=== PATIENT | female | born 1945 | race Caucasian/White ===

== ENCOUNTER 2016-12-10 07:05 | Inpatient (IN) | payer MEDICARE, BC ==
--- NOTE | 2016-12-02 16:59 | HP ---
HISTORY AND PHYSICAL: DATE OF ADMISSION/SURGERY: 12/10/16 DATE OF OFFICE VISIT: 11/29/16 SURGEON: Tracey Munoz MD * (DICTATED BY ELI CURRIE) PROCEDURE: Left total knee arthroplasty. CHIEF COMPLAINT: Left knee pain. HISTORY OF PRESENT ILLNESS: Ms. Fountain is a 71-year-old female with complaints of left knee pain secondary to advanced osteoarthritis. She has failed conservative management and has elected to proceed with a left total knee arthroplasty, which is scheduled for 12/10/16. PAST MEDICAL HISTORY: Hypertension and a thyroid goiter. PAST SURGICAL HISTORY: Hysterectomy, bilateral feet surgery, left great toe surgery, hammertoe repair of the left foot, and left knee arthroscopy. CURRENT MEDICATIONS: 1. Metoprolol. 2. Vitamin D. 3. Melatonin. 4. Estrace. 5. Cetirizine. 6. Pepcid. 7. Hair, Skin, and Nails. ALLERGIES: AMOXICILLIN and DULCOLAX. FAMILY HISTORY: Diabetes, heart disease, and colon cancer. SOCIAL HISTORY: A 71-year-old female. She lives with her . She does not smoke or use drugs. Uses occasional alcohol. REVIEW OF SYSTEMS: A complete 14-point review of systems was reviewed with the patient, was all negative or noncontributory. PHYSICAL EXAMINATION GENERAL: Well developed, well nourished, in no acute distress. VITAL SIGNS: She stands 5 feet 8 inches tall, weighs 190 pounds. Her blood pressure is 124/68, her heart rate is 60. HEENT: Normocephalic, atraumatic. NECK: Supple. No palpable lymph nodes. PULMONARY: Lungs are clear to auscultation bilaterally. CARDIO: Regular rate and rhythm. Strong S1, S2. ABDOMEN: Soft, nontender, nondistended. NEUROLOGICAL: Cranial nerves II through XII are intact. She is alert and oriented x3. MUSCULOSKELETAL: Left lower extremity, the skin is intact. She has no open wounds or abrasions. She has moderate joint effusion, tenderness over the medial and lateral joint lines. No varus or valgus instability. 5 to 125 degrees of flexion. 2+ dorsalis pedis pulses. Her lower extremity muscle group strengths are intact at 5/5. ASSESSMENT AND PLAN: Ms. Fountain is a 71-year-old female with complaints of left knee pain secondary to advanced osteoarthritis. She has failed conservative management and has elected to proceed with a left total knee arthroplasty, which is scheduled for 12/10/[address] Munoz discussed the risks and benefits of the surgery at today's visit and all of her questions were answered. Coumadin was sent to her pharmacy for postoperative DVT prophylaxis. No pain medication was sent; she has high sensitivity to pain medications, and she will follow with Dr. Munoz in 2 weeks after the surgery. Pain medication will be determined upon discharge. ELI CURREI [id number]/[facility] #: [id number] YUSRA
[~2016-12-10 07:05] MED LIST: Buffered Lidocaine 0.9% SYRIN* 5 ML/SYR SYRINGE INTRADERM ONE
[2016-12-10] MEDS ORDERED: Clindamycin 900 MG IVPREMIX(* 900 MG/50 ML SDV IV ONE (07:10)
[2016-12-10] MEDS ORDERED: Buffered Lidocaine 0.9% SYRIN* 5 ML/SYR SYRINGE ONE (07:10)
[2016-12-10] MEDS ORDERED: Midazolam* 1 MG/ML 5 ML VIAL (5 MG) ONE (08:53)
[2016-12-10] MEDS ORDERED: Bupivacaine 0.5% SDV PF* 30 ML VIAL ONE (10:01)
[2016-12-10] MEDS ORDERED: fentaNYL* 50 MCG/ML 2 ML VIAL (100 MCG VIAL) ONE ×2 (10:44→15:32)
[2016-12-10] MEDS ORDERED: Propofol* 10 MG/ML 20 ML BTL IV PUSH ONE (11:19)
[2016-12-10] MEDS ORDERED: Ondansetron INJ* 2 MG/ML VIAL IV PRN ×2 (11:51→11:52)
[2016-12-10] MEDS ORDERED: HYDROmorphone INJ* 2 MG/ML CARPUJECT SYRINGE IV PRN (11:51)
[2016-12-10] MEDS ORDERED: DiMENhydriNATE IV* 50 MG/ML VIAL IV PUSH PRN (11:51)
[2016-12-10] MEDS ORDERED: EPHEDrine (Pressors)* 50 MG/ML VIAL IV PUSH PRN (11:52)
[2016-12-10] MEDS ORDERED: Naloxone* 0.4 MG/ML 1 ML VIAL IV PRN (11:52)
[2016-12-10] MEDS ORDERED: oxyCODONE/Acetamin 5/325 MG* TAB PO PRN (11:52)
[2016-12-10] MEDS ORDERED: Scopolamine 1.5 mg* PATCH TRANSDERM SCH (12:00)
[2016-12-10] MEDS ORDERED: Ropivacaine 0.2% EPIDURAL* 200 MG/100 ML BAG EPIDURAL SCH (12:00)
[2016-12-10] MEDS ORDERED: Ropivacaine 0.2% EPIDURAL* 200 MG/100 ML BAG EPIDURAL ONE (12:52)
[2016-12-10] MEDS ORDERED: Polyethylene Glycol 3350* 17 GM PACKET PO PRN (13:30)
[2016-12-10] MEDS ORDERED: Magnesium Hydroxide LIQ* 30 ML UDC PO PRN (13:30)
--- NOTE | 2016-12-10 14:12 | RAD ---
HISTORY: Status post left knee arthroplasty COMPARISONS: November 29, 2016 VIEWS: 2, Frontal and lateral views of the left knee FINDINGS: BONE DENSITY: Normal. BONES: The patient is status post left knee arthroplasty. There is no hardware failure or osteolysis. JOINTS: The patient is status post left knee arthroplasty ALIGNMENT: There is no dislocation. SOFT TISSUES: There is post surgical change to the soft tissues. OTHER FINDINGS: None. IMPRESSION: STATUS POST LEFT KNEE ARTHROPLASTY
[2016-12-10] MEDS: fentaNYL* 50 MCG/ML 2 ML VIAL (100 MCG VIAL) IV PRN ×2 (15:33→15:58)
[2016-12-10] MEDS: Ketorolac INJ* 15 MG/ML 1 ML VIAL IV PRN (16:58)
[2016-12-10] MEDS ORDERED: Warfarin TAB(*) 6 MG PO ONE (17:00)
[2016-12-10] MEDS ORDERED: Hetastarch 6%* GIVE 500 ML IV ONE (19:00)
[2016-12-10] MEDS: Clindamycin 600 MG IVPREMIX(* 600 MG/50 ML SDV IV SCH (21:43)
[2016-12-10] MEDS: HYDROcodone/ACETAMIN 5-325 MG* 1 TAB PO PRN (22:57)
--- NOTE | 2016-12-11 00:40 | CONS ---
[facility] MED[facility]INE CONSULTATION REPORT: DATE OF CONSULTATION: 12/10/16 ATTENDING PHYSICIAN: Tracey Munoz MD CONSULTING PHYSICIAN: Raymond Grewal MD (dictation provided by Iris Robles NP) REASON FOR CONSULTATION: Medical co-management in the patient admitted for a left total knee arthroplasty. HISTORY OF PRESENT ILLNESS: Ms. Fountain is a 71-year-old female with a past medical history of hypertension who presents today in the hospital with plan for a left total knee arthroplasty. Please see the dictated H and P from Dr. Munoz for complete details. In brief, the patient had opted to proceed with surgery after failing conservative management. The patient states that prior to coming into surgery she was doing very well. She had no complaints other than her left knee pain. She confirms that her hypertension is managed with metoprolol. PAST MEDICAL HISTORY: 1. Hypertension. 2. History of thyroid goiter. PAST SURGICAL HISTORY: 1. Hysterectomy. 2. Bilateral foot surgeries. 3. Left great toe surgery. 4. Hammer toe repair of the left foot. 5. Left knee arthroscopy. MEDICATIONS: 1. Zicam 1 tablet p.o. t.i.d. 2. Naproxen 220 mg p.o. b.i.d. 3. Multivitamin with mineral 1 tablet p.o. q.a.m. 4. Minoxidil 1 application topically daily. 5. Metoprolol succinate 50 mg p.o. q.a.m. 6. Melatonin 3 mg p.o. at bedtime p.r.n. 7. Levocetirizine 5 mg p.o. q.a.m. 8. Famotidine 20 mg p.o. q.a.m. 9. Estradiol vaginal suppository Sundays and . 10. Cholecalciferol 1000 units p.o. daily. ALLERGIES: To NICKEL, BISACODYL, and AMOXICILLIN. FAMILY HISTORY: Reviewed and noncontributory. SOCIAL HISTORY: No report of alcohol, tobacco or drug use. The patient lives with her who is her healthcare proxy. REVIEW OF SYSTEMS: A 14-point review of systems was completed with Ms. Fountain and all those not mentioned above were negative. PHYSICAL EXAMINATION: Vital Signs: Temperature 97.7, pulse rate 52, respiratory rate 14, O2 saturation 97% on room air, blood pressure 141/69. General: Ms. Fountain is sitting up in the bed. She is in no acute distress. Neuro: She is alert. She is oriented x3. She moves all extremities equally. There is no facial asymmetry or focal weakness. Extraocular movements are intact. Heart: S1, S2. No murmur, rub, or gallop and regular. Lungs: Clear to auscultation bilaterally with no accessory muscle use and good aeration. Abdomen: Soft, nontender with bowel sounds positive x4. Extremities: No cyanosis or edema. Skin: Intact. The incision site was not assessed as she is in the immediate postoperative period. LABORATORY DATA: WBC 5.7, hemoglobin 13.2, hematocrit 40, platelet count 131, 000. Sodium 137, potassium 4.3, chloride 104, serum bicarbonate 29, BUN 25, creatinine 0.61, glucose 89. ASSESSMENT/PLAN: Ms. Fountain is a 71-year-old female with a past medical history of hypertension who presents today to the hospital for an elective left total knee arthroplasty with Dr. Munoz. Our recommendations are as follows: 1. Left total knee arthroplasty. Management will be per orthopedic services. The patient will have pain medications with a bowel regimen. Start PT and OT. We will monitor H and H closely. 2. Hypertension. We will plan to continue metoprolol. Her blood pressure is running one teens to 140s today. 3. DVT prophylaxis with warfarin and Lovenox per Ortho. 4. Code status is full code. TIME SPENT: Approximately 40 minutes were spent in the consultation of this patient, more than half the time spent with the patient at the bedside, reviewing the events leading up to this hospitalization , performing the physical examination, and reviewing my plan of care. IRIS ROBLES, LELAND [id number]/[facility] #: [id number] YUSRA
[2016-12-11] MEDS: HYDROcodone/ACETAMIN 5-325 MG* 1 TAB PO PRN (04:07)
[2016-12-11] MEDS: Clindamycin 600 MG IVPREMIX(* 600 MG/50 ML SDV IV SCH ×2 (04:09→11:24)
[2016-12-11] MEDS: Ketorolac INJ* 15 MG/ML 1 ML VIAL IV PRN (05:25)
[2016-12-11 05:43] LABS: Hematocrit 25 % (35-47); Hemoglobin 8.3 g/dl (12.0-16.0)
[2016-12-11 05:50] LABS: Comments Flag Yes
[2016-12-11] MEDS ORDERED: Ondansetron INJ* 2 MG/ML VIAL IV PRN (06:00)
[2016-12-11] MEDS ORDERED: oxyCODONE/Acetamin 5/325 MG* TAB PO PRN (06:00)
[2016-12-11] MEDS ORDERED: Ondansetron TAB* 4 MG PO PRN (06:00)
[2016-12-11] MEDS ORDERED: oxyCODONE TAB* 5 MG TAB PO PRN (06:00)
[2016-12-11 06:05] LABS: BUN/Creatinine Ratio 26.7 (8-20); Calcium 7.7 mg/dL (8.6-10.3); EGFR Non-African American 76.2 (>60)
[2016-12-11] MEDS: diPHENhydraMINE IV* 50 MG/ML 1 ml VIAL (BENADRYL) IV PRN ×3 (07:07→22:05)
[2016-12-11] MEDS: Cetirizine* 10 MG TAB PO SCH (07:54)
[2016-12-11] MEDS: Metoprolol Succinate XL TAB* 50 MG PO SCH (07:54)
[2016-12-11] MEDS: Famotidine TAB* 20 MG PO SCH (07:54)
[2016-12-11] MEDS: oxyCODONE/Acetamin 5/325 MG* TAB PO PRN ×3 (08:01→16:07)
[2016-12-11] MEDS: Morphine INJ* 2 MG/ML 1 ML SYRINGE (TWO MG - NEW SYRINGE VERSION) IV PRN ×3 (10:22→22:05)
--- NOTE | 2016-12-11 10:33 | PN ---
Progress Note - Progress Note Date of Service: 12/11/16 SOAP: Subjective: []Patient seen OOB in chair, doing well. Minimal complaints. Denies SOB, dizziness or CP. She will plan on discharge to home with VNS. Objective: [] Laboratory Results - last 24 hr 12/11/16 12/11/16 12/11/16 04:34 04:34 04:34 Hgb 8.3 L Hct 25 L INR (Anticoag Therapy) 1.22 H Sodium 136 Potassium 4.0 Chloride 106 Carbon Dioxide 28 Anion Gap 2 BUN 20 Creatinine 0.75 Est GFR ( Amer) 98.0 Est GFR (Non-Af Amer) 76.2 BUN/Creatinine Ratio 26.7 H Glucose 116 H Calcium 7.7 L Vital Signs Temp 98.6 F 12/11/16 07:37 Pulse 74 12/11/16 07:37 Resp 18 12/11/16 10:22 BP 118/59 12/11/16 07:37 Pulse Ox 90 12/11/16 08:00 Intake & Output 12/10/16 12/11/16 12/11/16 18:59 06:59 18:59 Intake Total 1800 800 200 Output Total 350 300 450 Balance 1450 500 -250 Weight 194 lb 9.6 oz Intake: IV Fluids 1800 LR 1800 Oral 800 200 Output: Tate 150 300 450 Estimated Blood Loss 200 Left knee dressing is dry and intact, hemovac drain discontinued by Dr. Munoz this morning without difficulty calf NT and soft +DF/PF left ankle sensation intact distally Assessment: []s/p Left total knee arthroplasty POD #1 Plan: []PT/OT WBAT LLE Coumadin with Lovenox bridge- 6 mg today Home with VNS in 1-2 days
[2016-12-11] MEDS: Enoxaparin(*) 30 MG/0.3 ML SYR SUBCUT SCH (11:25)
--- NOTE | 2016-12-11 14:49 | PN ---
Subjective Date of Service: 12/11/16 Interval History: Patient seen and examined at bedside. Patient reported dizziness last night with low blood pressure but denies any further episodes. BP has been stable. She did not have any dizziness when working with PT. Pain controlled. Family History: Unchanged from Admission Social History: Unchanged from Admission Past Medical History: Unchanged from Admission Objective Active Medications: Acetaminophen (Tylenol Tab*) 650 mg PO Q4H PRN Cetirizine HCl (Zyrtec*) 10 mg PO QAM TIKA Diphenhydramine HCl (Benadryl Iv*) 12.5 mg IV Q6H PRN Enoxaparin Sodium (Lovenox(*)) 30 mg SUBCUT Q24H TIKA Famotidine (Pepcid Tab*) 20 mg PO QAM TIKA Lactated Ringer's (Lactated Ringers 1000 Ml Bag*) 1,000 mls @ 100 mls/hr IV PER RATE TIKA Lactulose (Lactulose*) 30 ml PO Q6H PRN Magnesium Hydroxide (Milk Of Magnesia Liq*) 30 ml PO Q6H PRN Metoprolol Succinate (Toprol Xl Tab*) 50 mg PO QAM TIKA Morphine Sulfate (Morphine Inj (Syringe)*) 2 mg IV Q2H PRN Ondansetron HCl (Zofran Inj*) 4 mg IV Q6H PRN Ondansetron HCl (Zofran Tab*) 4 mg PO Q6H PRN Oxycodone HCl (Roxycodone Tab*) 10 mg PO Q4H PRN Oxycodone/Acetaminophen (Percocet 5/325 Tab*) 1 tab PO Q3H PRN Oxycodone/Acetaminophen (Percocet 5/325 Tab*) 2 tab PO Q3H PRN Pharmacy Profile Note (Scopolomine Patch Remove*) 1 note PATCH OFF .AFTER 72 HOURS ONE Pharmacy Profile Note (Coumadin Daily Reminder*) 1 note FOLLOW UP 1700 TIKA Polyethylene Glycol/Electrolytes (Miralax*) 17 gm PO DAILY PRN Warfarin Sodium (Coumadin Tab(*)) 6 mg PO ONCE@1700 ONE Vital Signs 12/11/16 12/11/16 12/11/16 11:34 13:25 13:58 Temperature 97.3 F Pulse Rate 59 Respiratory 16 18 16 Rate Blood Pressure 110/55 (mmHg) O2 Sat by Pulse 95 Oximetry Oxygen Devices in Use Now: None Appearance: sitting up in bed, NAD Eyes: No Scleral Icterus, PERRLA Ears/Nose/Mouth/Throat: NL Teeth, Lips, Gums Neck: NL Appearance and Movements; NL JVP Respiratory: Symmetrical Chest Expansion and Respiratory Effort, Clear to Auscultation Cardiovascular: NL Sounds; No Murmurs; No JVD, RRR Abdominal: NL Sounds; No Tenderness; No Distention Extremities: No Edema Skin: - - L knee incision C/D/I Neurological: Alert and Oriented x 3, NL Muscle Strength and Tone Lines/Tubes/Other Access: Clean, Dry and Intact Peripheral IV Nutrition: Taking PO's Result Diagrams: 12/11/16 04:34 12/11/16 04:34 Assess/Plan/Problems-Billing Patient is a 71 y/o Fw/ PMH of HTN who underwent a left total knee arthoplasty with Dr. Munoz on 12/10/2016. Hospitalists were asked to assist with the management of the patients blood pressure. - Patient Problems (1) History of arthroplasty of left knee Comment: Management per Ortho. Pain control. H/H down to 8.3. Recheck in AM. PT/ OT (2) DVT prophylaxis Comment: Lovenox and warfarin per Ortho (3) Hypertension Comment: Controlled; Continue Toprol. (4) Full code status Status and Disposition: Inaptient. Dispo per Ortho. Will sign off for now as BP stable. Continue Toprol. Please call with further questions.
--- NOTE | 2016-12-11 15:36 | OP ---
OPERATIVE REPORT: DATE OF OPERATION: 12/10/16 - Inpatient, room [place] [address]- DATE OF : 45 SURGEON: Tracey Munzo MD PICU NURSE: ELI Aquino Deleon did help throughout the procedure with preparation of the leg, wound retraction, manipulation of the knee, and wound closure. ANESTHESIOLOGIST: Moisés Zhong MD ANESTHESIA: Spinal. PRE-OP DIAGNOSIS: Severe end-stage degenerative osteoarthritis of the left knee joint. POST-OP DIAGNOSIS: Severe end-stage degenerative osteoarthritis of the left knee joint. OPERATIVE PROCEDURE: Left total knee arthroplasty. INDICATIONS: Ms. Milena Fountain is a 71-year-old female with years of increasingly severe left knee pain. She failed conservative treatment with antiinflammatories, pain medication, intraarticular injections, and physical therapy. She elected to undergo a left total knee arthroplasty due to continued pain and decreased quality of life. Radiographs confirmed bone-on- bone arthritis. Informed consent was obtained from the patient. She understands the risks of surgery included but are not limited to bleeding, infection, damage to nearby structures, continued pain, need for further surgery , intraoperative fracture, nerve palsy, hardware failure or loosening, stiffness of knee, loss of motion, stroke, heart attack, blood clot, and . She wished to proceed. TOURNIQUET TIME: 43 minutes. ESTIMATED BLOOD LOSS: 200 cc. COMPLICATIONS: None. SPECIMEN: Bone and cartilage from the left knee joint sent to Pathology. HARDWARE USED: This is cemented [employer] total knee arthroplasty hardware. Two packages of Simplex bone cement. For the femur, an Oxinium left size 4 Legion femoral component. For the tibia, a size 4 left tibial baseplate. For the insert, an 11-mm constrained articular insert size 3-4. For the patella, a 32, 7.5 thickness 3-peg all-poly patella. INTRAOPERATIVE FINDINGS: Intraoperatively, the patient was noted to have full- thickness loss of cartilage in all 3 compartments. She was also noted to have significant osteopenia. DESCRIPTION OF PROCEDURE: Ms. Fountain was identified in the preanesthesia unit. Her left lower extremity was marked as the correct operative side. Informed consent was signed and placed in the chart. She was taken to the operating room and placed under spinal anesthesia. A Tate catheter was placed. Tourniquet was placed on the left thigh. Lower extremity was prepped and draped in the usual sterile fashion. Preop time-out was made to correctly identify the patient's side and site. Appropriate perioperative antibiotics were given within 1 hour of incision. Tourniquet was inflated and total tourniquet time for this procedure was 43 minutes. A midline incision of 12 cm was made with a 10-blade. This was carried down to the extensor mechanism. A new 10-blade was used to make a standard medial parapatellar arthrotomy. The patella was subluxed laterally. Electrocautery was used to subperiosteally elevate the soft tissue off the superomedial tibia. The knee was flexed up. Anterior horn of the lateral meniscus and ACL were sharply released. A drill was used to enter the distal femur. Intramedullary distal femoral cutting guide was pinned into position. Oscillating saw was used to make the appropriate distal femoral cut. External rotation guide was pinned on the distal femur. The distal femur was sized to a size 4. Size 4 multi-cutting jig was pinned on the distal femur. Oscillating saw was used to make the appropriate 4 chamfer cuts. PCL was completely released. Tibia was subluxed anteriorly. Extramedullary tibial cutting guide was pinned on the proximal tibia. The oscillating saw was used to make the proximal tibial cut perpendicular to the mechanical axis of the tibia. The bone was carefully removed. The knee was brought out into full extension. Spacer block had excellent fit. There was good medial and lateral ligamentous balancing. It was noted that the MCL was competent, but very thin with some laxity. Flexion and extension gaps were well balanced. The knee was flexed up. Lamina spreaders were placed both medially and laterally. Any remaining meniscus was carefully removed using electrocautery. Posterior osteophytes were removed using a curved osteotome. Tibial tray and drop kala were placed and the tibial cut was confirmed to be satisfactory. A trial left 4 femur was impacted on to the distal femur and had excellent fit. The box for the posterior stabilized implant was prepared using a reamer and box cut osteotome. Size 4 tibial tray trial with an 11-mm insert trial was placed and the knee was taken through a range of motion. The knee was stable in positions. There was full extension and 130 degrees of flexion. Once again, some slight MCL laxity was noted. Patella was everted. 7 mm of patellar bone and cartilage was carefully removed using an oscillating saw. The patella was sized to a size 32. The 3-peg holes were drilled through the size 32 guide. A trial 32 patella with 7.5 thickness was placed and the knee was taken through a range of motion. There was satisfactory patellofemoral tracking. All trials were carefully removed. The tibia was subluxed anteriorly and sized to a size 4. Proximal tibia was prepared using a size 4 keel punch. All bony cut surfaces were copiously irrigated with sterile saline and dried. Final implants were cemented into place starting with the tibia, followed by the femur , and lastly the patella. An 11-mm insert trial was placed and the knee was brought out into full extension. Tourniquet was turned down at 43 minutes. The knee was copiously irrigated with sterile saline. Once the cement had fully cured, the insert trial was removed. Any excess cement was carefully removed from around the implant and capsule. Electrocautery was used to obtain meticulous hemostasis. An 11-mm constrained articular insert size 3-4 was chosen as the final insert, this was locked into position on the tibial tray without difficulty. Stability of the insert was checked and rechecked and noted to be stable. The extensor mechanism was closed over a medium Hemovac drain using interrupted #1 Vicryl's. The rest of the incision was closed in a layered fashion using 0 and 2-0 Vicryl's. The skin was closed using running nylon suture 3-0. Sterile Xeroform, 4x4's, and Webril were used to cover the incision. Richie wrap and cold pack were placed over this. The patient's anesthesia was reversed without difficulty. She was taken to the PACU in stable condition. Intended weightbearing will be weightbearing as tolerated. Intended DVT prophylaxis will be Coumadin with a Lovenox bridge. [id number]/[facility] #: [id number] [facility] CENTERRey
[2016-12-11] MEDS ORDERED: Warfarin TAB(*) 6 MG PO ONE (17:00)
[2016-12-12] MEDS: Acetaminophen TAB* 325 MG PO PRN ×2 (00:29→07:28)
[2016-12-12] MEDS: Morphine INJ* 2 MG/ML 1 ML SYRINGE (TWO MG - NEW SYRINGE VERSION) IV PRN (03:55)
[2016-12-12 06:07] LABS: Hematocrit 25 % (35-47); Hemoglobin 8.4 g/dl (12.0-16.0)
[2016-12-12] MEDS: Cetirizine* 10 MG TAB PO SCH (07:28)
[2016-12-12] MEDS: diPHENhydraMINE IV* 50 MG/ML 1 ml VIAL (BENADRYL) IV PRN (08:49)
[2016-12-12] MEDS: Metoprolol Succinate XL TAB* 50 MG PO SCH (08:53)
[2016-12-12] MEDS: Famotidine TAB* 20 MG PO SCH (08:53)
--- NOTE | 2016-12-12 10:46 | PN ---
Progress Note - Progress Note Date of Service: 12/12/16 SOAP: Subjective: []Patient seen OOB in chair. She has no complaints and confirms good pain control. She was febrile overnight and this morning. Denies chest pain, shortness of breath, abdominal pain, urinary symptoms or calf pain. Confirms she has been using incentive spirometer. Objective: [] Laboratory Last Values Hgb 8.4 g/dl (12.0-16.0) L 12/12/16 06:01 Hct 25 % (35-47) L 12/12/16 06:01 INR (Anticoag Therapy) 1.25 (0.89-1.11) H 12/12/16 06:01 Sodium 136 mmol/L (133-145) 12/11/16 04:34 Potassium 4.0 mmol/L (3.5-5.0) 12/11/16 04:34 Chloride 106 mmol/L (101-111) 12/11/16 04:34 Carbon Dioxide 28 mmol/L (22-32) 12/11/16 04:34 Anion Gap 2 mmol/L (2-11) 12/11/16 04:34 BUN 20 mg/dL (6-24) 12/11/16 04:34 Creatinine 0.75 mg/dL (0.51-0.95) 12/11/16 04:34 Est GFR ( Amer) 98.0 (>60) 12/11/16 04:34 Est GFR (Non-Af Amer) 76.2 (>60) 12/11/16 04:34 BUN/Creatinine Ratio 26.7 (8-20) H 12/11/16 04:34 Glucose 116 mg/dL (70-100) H 12/11/16 04:34 Calcium 7.7 mg/dL (8.6-10.3) L 12/11/16 04:34 Vital Signs Temp 101.9 F 12/12/16 07:24 Pulse 95 12/12/16 07:24 Resp 18 12/12/16 09:49 BP 131/57 12/12/16 07:24 Pulse Ox 94 12/12/16 07:24 Temp Pulse Resp BP Pulse Ox 99.0 F 81 18 118/60 93 12/12/16 11:04 12/12/16 11:04 12/12/16 11:04 12/12/16 11:04 12/12/16 11:04 Intake & Output 12/11/16 12/12/16 12/12/16 18:59 06:59 18:59 Intake Total 3776 1050 120 Output Total 900 1000 1000 Balance 2876 50 -880 Intake: IVPB 2661 ABX - CEFAZOLIN 192 LR 2469 Oral 1115 1050 120 Output: Urine 450 1000 1000 Tate 450 General: OOB in chair, appears well. LLE: - Calf supple and nontender - DF/PF intact - DP pulse 2+ - Dressing changed, wound benign without erythema of wound edge, no discharge. Assessment: []POD 2 from Left total knee arthroplasty, Dr. Munoz. Plan: []WBAT PT/OT Plan d/c home today, fever has now reduced to 99.0 F Discontinue coumadin to ASA 325 mg BID Comanaged throughout stay by hospitalist for low BP
[2016-12-12] MEDS: Enoxaparin(*) 30 MG/0.3 ML SYR SUBCUT SCH (11:37)
[2016-12-12] MEDS: oxyCODONE/Acetamin 5/325 MG* TAB PO PRN (12:43)
[2016-12-12 15:35] VITALS: BP 119/57
--- NOTE | 2016-12-13 03:09 | DS ---
AMENDED REPORT NOW INCLUDES COSIGNER DESIGNATION - ESIGNED BEFORE ADJUSTMENT DISCHARGE SUMMARY: DATE OF ADMISSION: 12/10/16 DATE OF DISCHARGE: 12/12/16 SURGEON: Dr. Tracey Munoz * (DICTATED BY ELI XIAO) REHAB LIAISON: ELI Aquino PROCEDURE: Left total knee arthroplasty. CONSULTS INCLUDED: Physical Therapy, Occupational Therapy, and Medicine. HISTORY: Ms. Fountain is a 71-year-old female who complains of left knee pain secondary to advanced osteoarthritis. She has failed conservative management and has elected to proceed with a left total knee arthroplasty, which was performed on 12/10/16. HOSPITAL COURSE: Ms. Fountain was admitted to [facility] on 12/10/16. She underwent a left total knee arthroplasty. Postoperatively, she recovered in the short stay surgical unit. On postop day #1, she was advanced to a regular diet without difficulty. Her pain was well controlled with Percocet. She was restarted on home medications. Her labs and vital signs remained stable. She was able to bear weight as tolerated on the left lower extremity. She advanced appropriately with physical therapy and occupational therapy. DVT prophylaxis was managed with Lovenox and Coumadin. She did not reach a therapeutic INR, so on postoperative day #2 for discharge, she was changed to aspirin 325 mg twice per day. By postop day #2, she was orthopedically and medically stable for discharge to home with services. During her stay, she was followed by the hospitalist service for blood pressure management. She was last seen by the hospitalist on 12/11/16 who confirmed that her blood pressure had been stable and continued with her medication of Toprol. PHYSICAL EXAMINATION: The patient is noted to be calm and cooperative in no acute distress. She was alert and oriented. Vital signs on the day of discharge; last temperature was 98.5 at 12:42 p.m., pulse 81, respiratory rate 18, oxygen saturation 93%, blood pressure 118/60. Examination of her left lower extremity, calf was supple and nontender. Dorsiflexion and plantar flexion were intact. Dorsalis pedis pulse 2+. The patient's dressing was changed. The wound was benign without erythema of the wound edge and no discharge. Sensation was intact to light touch distally. LABORATORY DATA: On the day of discharge, hemoglobin 8.4, hematocrit 25. DISCHARGE MEDICATIONS: 1. Melatonin 3 mg cap at bedtime p.r.n. 2. Pepcid 20 mg tab q.a.m. 3. Estradiol vaginal cream 4. Levocetirizine 5 mg q.a.m. 5. Vitamin D 1000 units. 6. Metoprolol succinate 50 mg tab q.a.m. 7. Minoxidil 5% 1 application topically daily. 8. Zicam 1 tab p.o. t.i.d. 9. Naproxen sodium 220 mg tablet b.i.d. 10. Aspirin 325 mg p.o. b.i.d. #60. 11. Diphenhydramine 25 mg p.o. q.4 hours p.r.n. #60 12. Homewood 5/325 one tab p.o. q.4 hours p.r.n. #60, max daily dose is 6. CONDITION ON DISCHARGE: Stable. DISCHARGE INSTRUCTIONS: Ms. Fountain is a 71-year-old female postop day #2 status post left knee arthroplasty, which is uncomplicated. She is orthopedically and medically stable for discharge to home with services. Her labs and vital signs are stable. She will restart her home medications. She will take aspirin 325 mg twice daily. She will remain weightbearing as tolerated on the left lower extremity. She will have home PT twice a week. She will take Homewood for pain control. Along with this, she may take [id number] Benadryl as directed as needed for itching. Should she have any symptoms aside from itching such as swelling, hives, difficulty breathing, she will seek immediate medical attention. She will take Colace up to 3 times a day for constipation. She will follow up with Dr. Munoz in 10 to 14 days for an incision check and suture removal. She was instructed to go immediately to the ER should she develop chest pain or shortness of breath. Should she develop fever, increasing pain, or increased redness, she is to call the office immediately. ELI XIAO [id number]/[place] #: [id number] [facility]
[2016-12-13] MEDS ORDERED: Scopolomine PATCH Remove* 1 NOTE MISC PATCH OFF ONE (11:54)
== END 2016-12-12 15:55 | disposition home health service (06) | DRG 470 ==
LOC: AA 07:05 → SSU 13:30
PROVIDERS: ADMIT Orthopaedic Surgery Adult Reconstructive Orthopaedic Surgery; ATTEND Orthopaedic Surgery Adult Reconstructive Orthopaedic Surgery
PROC: 0SRD0J9 Replacement of Left Knee Joint with Synthetic Substitute, Cemented, Open Approach (ICD-10-PCS; principal; 2016-12-10 09:00)
DX: M17.12 Unilateral primary osteoarthritis, left knee (principal); I10 Essential (primary) hypertension; M85.862 Other specified disorders of bone density and structure, left lower leg; R42 Dizziness and giddiness; Z90.710 Acquired absence of both cervix and uterus; Z88.1 Allergy status to other antibiotic agents; Z79.82 Long term (current) use of aspirin; Z88.8 Allergy status to other drugs, medicaments and biological substances; Z82.49 Family history of ischemic heart disease and other diseases of the circulatory system; Z83.3 Family history of diabetes mellitus; Z80.0 Family history of malignant neoplasm of digestive organs
CPT/HCPCS: 36415; 62327; 80048; 85014; 85018; 85610; 88305; 88311; A9270-GY; C1776; J1200; J1650; J1885; J2250; J2270; J2405; J2704; J2795; J3010

== ENCOUNTER 2021-03-22 09:50 | Observation (INO) ==
[~2021-03-22 09:50] MED LIST changes: -Buffered Lidocaine 0.9% SYRIN* 5 ML/SYR SYRINGE INTRADERM ONE; +Buffered Lidocaine 1% SYRIN 1 ml INTRADERM ONE; +Lactated Ringers 1000 ml BAG 1,000 ML IV SCH
[2021-03-22] MEDS ORDERED: ceFAZolin 2 GM in NS PREMIX 2 GM/100 ML BAG IVPB ONE (10:08)
[2021-03-22] MEDS ORDERED: Dexamethasone IV 4 MG/ML VIAL 1 ml VIAL ONE (10:17)
[2021-03-22] MEDS ORDERED: Lidocaine 2% PF 5 ML VIAL ONE (10:17)
[2021-03-22] MEDS ORDERED: Midazolam 2 mg/2 ml VIAL 1 mg/ml 2 ml VIAL (2 mg) ONE ×2 (10:17→11:51)
[2021-03-22] MEDS ORDERED: Acetaminophen IV 1 GM/100ML 100 ML IV ONE (10:17)
[2021-03-22] MEDS ORDERED: Ondansetron 4 mg VIAL 2 MG/ML 2 ml VIAL ONE (10:17)
[2021-03-22] MEDS ORDERED: fentaNYL 100 mcg/2 ml 50 MCG/ML VIAL ONE (10:17)
[2021-03-22] MEDS ORDERED: HYDROmorphone 1 MG/1 ML SYRINGE IV PRN (10:57)
[2021-03-22] MEDS ORDERED: Naloxone 0.4 mg VIAL 0.4 mg/ml 1 ml VIAL IV PRN (10:57)
[2021-03-22] MEDS ORDERED: fentaNYL 100 mcg/2 ml 50 MCG/ML VIAL IV PRN (10:57)
[2021-03-22] MEDS ORDERED: Ondansetron 4 mg VIAL 2 MG/ML 2 ml VIAL IV PRN ×2 (10:57→13:08)
[2021-03-22] MEDS ORDERED: DiMENhydriNATE IV 50 mg/ml 1 ml VIAL IV PUSH PRN (10:57)
[2021-03-22] MEDS ORDERED: Acetaminophen IV 1 GM/100ML 100 ML IV PRN (10:57)
[2021-03-22] MEDS ORDERED: diPHENhydraMINE IV 50 MG/ML 1 ml VIAL (BENADRYL) IV PRN ×2 (10:58→13:08)
[2021-03-22] MEDS ORDERED: Lidocaine 1% MPF 5 ML VIAL ONE (11:02)
[2021-03-22] MEDS ORDERED: ROPIVACAINE 5 MG/ML 30 ML BTL (0.5%) ONE (11:02)
[2021-03-22] MEDS ORDERED: Bupivacaine 0.5% SDV PF 30ML VIAL ONE (11:50)
[2021-03-22] MEDS ORDERED: Ropivacaine 5 MG/ML 20 ML VIAL 0.5% (100 MG) ONE (12:16)
[2021-03-22] MEDS ORDERED: Rocuronium 50 mg VIAL 10 mg/ml 5 ml VIAL (50 mg) ONE (12:45)
[2021-03-22] MEDS ORDERED: Morphine 2 MG/ML SYRINGE IV PRN (13:08)
[2021-03-22] MEDS ORDERED: Ondansetron ODT 4 mg TAB 4 MG TAB PO PRN (13:08)
[2021-03-22] MEDS ORDERED: Lactulose 30 ml UDC PO PRN (13:08)
[2021-03-22] MEDS ORDERED: Magnesium Hydroxide LIQ 30 ML UDC PO PRN (13:08)
[2021-03-22] MEDS ORDERED: EPHEDrine (Pressors) 50 MG/ML VIAL ONE (13:27)
[2021-03-22] MEDS ORDERED: Sterile Water for Inj 10 ML ONE (13:27)
[2021-03-22] MEDS ORDERED: Lactated Ringers 1000 ml BAG 1,000 ML IV SCH (14:00)
[2021-03-22] MEDS ORDERED: Polyethylene Glycol 3350 17 GM PACKET PO PRN (14:00)
[2021-03-22] MEDS ORDERED: Propofol 10 MG/ML 20 ML BTL ONE (14:22)
[2021-03-22] MEDS: Magnesium Hydroxide LIQ 30 ML UDC PO SCH (20:11)
[2021-03-22] MEDS: ceFAZolin 1 GM ADVAN 1 GM in NS 0.9% 50 ML 50 ML IVPB SCH (20:30)
[2021-03-22] MEDS: diPHENhydraMINE 25 mg TAB PO PRN (23:07)
[2021-03-23] MEDS: ceFAZolin 1 GM ADVAN 1 GM in NS 0.9% 50 ML 50 ML IVPB SCH ×2 (04:46→12:18)
[2021-03-23 06:03] LABS: Hematocrit 33 % (35-47); Hemoglobin 11.1 g/dL (12.0-16.0); Mean Platelet Volume 7.8 fL (7.4-10.4); Platelet Count 128 10^3/uL (150-450)
[2021-03-23 06:19] LABS: Calcium 8.5 mg/dL (8.6-10.3); Potassium 4.2 mmol/L (3.5-5.0); eGFR CKD-EPI 93.5 (>60)
[2021-03-23] MEDS: diPHENhydraMINE 25 mg TAB PO PRN (08:08)
[2021-03-23] MEDS: Magnesium Hydroxide LIQ 30 ML UDC PO SCH (08:09)
[2021-03-23 08:17] VITALS: BP 137/74
[2021-03-23] MEDS ORDERED: Vitamin THERAPEUTIC TAB PO SCH (09:00)
== END 2021-03-23 13:30 | disposition home or self-care (01) ==
LOC: SSU 09:50 → OR 09:50
PROVIDERS: ADMIT Orthopaedic Surgery Adult Reconstructive Orthopaedic Surgery; ATTEND Orthopaedic Surgery Adult Reconstructive Orthopaedic Surgery